=== PATIENT | male | born 1980 | race Two or more races ===

== ENCOUNTER 2016-11-12 20:24 | Emergency (ER) | payer SELFPAY ==
[~2016-11-12] VITALS: Ht 157.5 cm; Wt 83.9 kg
[2016-11-12] MEDS ORDERED: NKM (20:38)
[2016-11-12] MEDS ORDERED: PERCOCET 5-3251 EACH ORAL (22:55)
[2016-11-12] MEDS ORDERED: IBUPROFEN600 MG ORAL (22:55)
[2016-11-12 23:37] VITALS: BP_SYST 1; BP_SYST 119; BP_DIAS 1; BP_DIAS 85
--- NOTE | 2016-11-13 00:26 | Emergency Room Report ---
History of Present Illness General Chief Complaint: Upper Extremity Injury Source: Patient Present Illness HPI 36YOM with left elbow pain after 8 foot fall on left arm last night while doing work in the house. C/o progressive pain to area, swelling to arm/hand distal to elbow. Didnt take any OTC meds. Unable to raise elbow, fully extend elbow. Denies pain anywhere else. No previous elbow injury Allergies: Coded Allergies: No Known Allergies (Unverified , 11/12/16) Patient History Past Medical History: none Past Surgical History: none Social History: Denies: alcohol use, drug use, smoking Immunizations: UTD Reviewed Nursing Documentation: PMH: Agreed, PSxH: Agreed Nursing Documentation-PMH Past Medical History: No Stated History Review of Systems All Other Systems: negative except mentioned in HPI Physical Exam Vital Signs Date Time Temp Pulse Resp B/P Pulse Ox O2 Delivery O2 Flow Rate FiO2 11/12/16 20:35 98.8 92 18 119/85 98 Room Air Sp02 EP Interpretation: reviewed, normal General Appearance: normal inspection, well appearing, no apparent distress, alert Head: atraumatic ENT: normal ENT inspection, hearing grossly normal, normal voice Neck: normal inspection, full range of motion, supple, no bony tend Respiratory: normal inspection, lungs clear, normal breath sounds, no respiratory distress, no retraction, no wheezing Cardiovascular #1: regular rate, rhythm, no edema Gastrointestinal: normal inspection, normal bowel sounds, non tender, soft, no guarding, no hernia Genitourinary: no CVA tenderness Musculoskeletal: other - Left arm: ++ ttp to left elbow joint. Unable to full extend. ROM limited by pain. Non-pitting edema extending from elbow down to including hand. No pain to left jake, wrist, forearm or shoulder. 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, motor strength/tone normal, speech normal Psychiatric: normal inspection, judgement/insight normal, mood/affect normal Skin: normal inspection, normal color, no rash Procedures Splinting Splinting : Consent: Verbal Hand-Made Type: plaster Splint: posterior long Pre-Proc Neuro Vasc Exam: normal Post-Proc Neuro Vasc Exam: normal Patient Tolerated: Well Complications: None Medical Decision Making Diagnostic Impression: Primary Impression: Left elbow fracture Qualified Codes: S42.402A - Unspecified fracture of lower end of left humerus , initial encounter for closed fracture ER Course Left elbow fracture Long posterior splint placed Sling given Rx analgesia provided Understands to f/up with Orthopedics in 1-2 weeks DC home Chest X-Ray Diagnostic Results Chest X-Ray Diagnostic Results : Chest X-Ray Ordered: Yes # of Views/Limited/Complete: 1 View Indication: Chest Pain EP Interpretation: Yes Interpretation: no consolidation Impression: No acute disease Interpreting ER Provider: Electronically signed by DR Baron Other X-Ray Diagnostic Results Other X-Ray Diagnostic Results : X-Ray ordered: Left humerus # of Views/Limited Vs Complete: 3 View Indication: Pain EP Interpretation: Yes Interpretation: no dislocation, no soft tissue swelling Impression: Other - Radial head fx Interpreting ER Provider: Electronically signed by DR Baron PA Scribe Text Left wrist Reviewed by ED physician 3 views No acute fx, dislocation, soft tissue swelling Left forearm Reviewed by ED physician 2 views No acute fx, dislocation, soft tissue swelling Last Vital Signs Date Time Temp Pulse Resp B/P Pulse Ox O2 Delivery O2 Flow Rate FiO2 11/12/16 23:37 98.8 18 119/85 98 Room Air 11/12/16 20:35 92 Disposition: HOME, SELF-CARE Condition: Improved Scripts Oxycodone/Acetaminophen 5-325* (PERCOCET 5-325 MG TABLET*) 1 Each Tablet 1 TAB ORAL BID Y for Severe Breakthru Pain (>7) for 7 Days, #14 TAB Prov: JAVON BARON M.D. 11/12/16 Ibuprofen* (MOTRIN*) 600 Mg Tablet 600 MG ORAL THREE TIMES A DAY for For Pain for 7 Days, #30 TAB 0 Refills Prov: JAVON BARON M.D. 11/12/16 Patient Instructions: Elbow Fracture, Simple Additional Instructions: - Keep splint clean and dry - Follow up with Orthopedics in 1-2 weeks - Take Ibuprofen for pain, percocet only for severe pain JVAON BARON M.D. Nov 13, 2016 00:26
--- NOTE | 2016-11-13 09:18 | Diagnostic Imaging Report ---
Indication: Pain Findings: 2 views of the left humerus were obtained. No acute fractures, malalignment, erosions or periostitis are identified. Bone mineralization is within normal limits. Soft tissues are unremarkable. Note: There is a fracture of the radial head which was discussed in the elbow report. Impression: Negative examination of the humerus
--- NOTE | 2016-11-13 09:19 | Diagnostic Imaging Report ---
Indication: Pain Findings: 3 views of the left wrist were obtained. No acute fractures, malalignment, erosions or periostitis are identified. Bone mineralization is within normal limits. Soft tissue swelling is present involving the dorsal aspect of the wrist. Impression: No acute fracture appreciated
--- NOTE | 2016-11-13 09:19 | Diagnostic Imaging Report ---
Indication: Pain Findings: 3 views of the left elbow were obtained. There is an acute, comminuted fracture of the radial head and neck with intra-articular extension. Joint effusion demonstrated with elevation of the fat pads. Alignment is well maintained. Impression: Acute fracture of the radial head and neck
--- NOTE | 2016-11-13 09:20 | Diagnostic Imaging Report ---
Indication: Pain Findings: 2 views of the left forearm were obtained. Acute fracture of the radial head and neck noted. No additional fractures are seen. Alignment is normal. Impression: Radial head fracture.
--- NOTE | 2016-11-13 13:30 | Diagnostic Imaging Report ---
Indication: Chest pain. Chest trauma Comparison: None A single view chest radiograph was obtained. Findings: Cardiomediastinal appearance is within normal limits for age. Pulmonary vascularity is appropriate. The diaphragmatic contour is smooth and costophrenic angles are sharp. No pleural effusions are identified. The bones are unremarkable. Impression: No acute findings
== END 2016-11-12 23:20 | disposition home or self-care (01) ==
LOC: EMR 20:50
DX: S42.402A Unspecified fracture of lower end of left humerus, initial encounter for closed fracture (principal); X58.XXXA Exposure to other specified factors, initial encounter; Y93.9 Activity, unspecified; Y92.009 Unspecified place in unspecified non-institutional (private) residence as the place of occurrence of the external cause
CPT/HCPCS: 29105; 29240; 71010; 99284

== ENCOUNTER 2019-12-27 19:03 | Emergency (ER) | payer SELFPAY ==
[~2019-12-27] VITALS: Ht 162.6 cm; Wt 86.2 kg
[~2019-12-27 19:03] MED LIST: IBUPROFEN600 MG ORAL; NKM; PERCOCET 5-3251 EACH ORAL
[2019-12-27 19:23] VITALS: BP 141/88
--- NOTE | 2019-12-27 19:23 | NUR ---
ED Nurse Note: pt ambulated into ed from home CO CP x 4 days, described as continous ache. pt denies n/v/fever but states that he has had a recent cough. Pt denies being around others who are sick at home or at work. Pt AAO x 4, ambulates with steady gait. Pt placed in gown in bed on cardiac rn. IV line initiated, blood drawn. EKG performed by RN. Awaiting ERMD at bedside. Awaiting further orders.
[2019-12-27] MEDS ORDERED: Ketorolac 30mg Inj IM ONE (19:30)
--- NOTE | 2019-12-27 19:42 | NUR ---
ED Nurse Note: blood work obtained and sent to lab
[2019-12-27] MEDS ORDERED: ROBAXIN-750750 MG PO (19:43)
[2019-12-27] MEDS ORDERED: NAPROXEN500 M2 ORAL (19:43)
[2019-12-27 19:47] LABS: BASOPHILS % (AUTO) 1.5 % (0.0-2.0); EOSINOPHILS % (AUTO) 3.4 % (0.0-3.0); MEAN CORPUSCULAR VOLUME 85 FL (80-99); NEUTROPHILS % (AUTO) 59.1 % (45.0-75.0); PLATELET COUNT 260 K/UL (150-450); RED BLOOD COUNT 4.94 M/UL (4.70-6.10); RED CELL DISTRIBUTION WIDTH 12.7 % (11.6-14.8); WHITE BLOOD COUNT 10.1 K/UL (4.8-10.8)
--- NOTE | 2019-12-27 19:52 | NUR ---
ED Nurse Note: xray at bedside
--- NOTE | 2019-12-27 19:54 | Emergency Room Report ---
History of Present Illness General Chief Complaint: Chest Pain Source: Patient Present Illness HPI 39M no PMHx c/o R sided chest pain x 4 days, constant. 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 Also states he recently traveled to [place] within the past 1 month. Admits to dry cough and fatigue. Unaware whether he has positive COVID contacts or not. Denies SOB, hemoptysis, hx blood clot, leg swelling, n/v/d, melena or hematochezia, dizziness or other complaints. Denies change in appetite. The patient's symptoms were gradual onset, severity was moderate, duration since 4 days. Quality: aching, non radiating Past medical history: denies Past surgical history: Denies Smoking: Denies Alcohol use: Occasional Drug use: Denies Review of systems: CONST: + fatigue. No fevers or chills, No night sweats PULMONARY: + dry cough, No shortness of breath CARDIAC: +Chest pain, No palpitations GI: No vomiting, No diarrhea , No melena_or_BRBPR : No dysuria, No hematuria, No discharge NEURO: No new_focal_weakness_or_numbness, No confusion, No vision changes 14 point Review of Systems is otherwise negative except per HPI Physical Exam: GENERAL: Awake_alert_ nontoxic, no acute distress Spo2 98% on RA -normal EYES: Extraocular muscles are intact. Conjunctivae clear. Lids without swelling ENT: External nose and ear normal_in_appearance. Oropharynx clear. Head_ atraumatic, Moist_oral_mucosa NECK: No JVD. No meningismus. No thyromegaly. Supple. Trachea midline Reproducible anterior chest wall TTP RESP: Normal respiratory effort. Symmetric rise. No stridor. Clear_to_ auscultation_No_rales_No_wheezes CARDIAC: Regular rate and regular rhytm. No_significant pedal edema. ABDOMEN: Soft. Nondistended. Nontender_No_rebound_or_guarding. MSK: Normal muscle tone, without rigidity. Extremities without asymmetric deformity or swelling. SKIN: Warm and dry. No visible cyanosis or pallor NEUROLOGIC: Alert, oriented x3. Motor_and_sensation_grossly_intact. No truncal ataxia. Gait_normal Psych: Normal mood and affect, normal judgment and insight - COORDINATION OF CARE Case was discussed with: Patient Any labs and imaging that were ordered were interpreted as part of the medical decision making: Medical Decision Making/Plan: Differential includes acute coronary syndrome, pulmonary embolism, pneumonia, aortic dissection, pericardial tamponade, musculoskeletal chest pain, among others. Patient is nontoxic and well-appearing with stable vitals signs. COVID found to be positive. CXR does not show multifocal pna, effusion, or PTX. Otherwise, the patients pain appears consistent with a musculoskeletal origin. Pain is reproducible with palpation and states it is constant x 4 days, worse with lifting things. EKG shows NSR without any obvious signs of ischemia. No significant right heart strain. CXR shows no evidence of pneumothorax, pneumonia, or significant pleural effusion. Troponin negative. Dimer negative. Doubt PE. COVID is positive Acute coronary syndrome is unlikely and the patient is low risk, pain is atypical, nonexertional, and troponin is negative with over 6 hrs of symptoms. The pain is not classic for pericarditis or myocarditis, and the patient has no significant risk factors for a pericardial effusion and has stable vitals signs , unlikely to have tamponade. Pain is not likely to be pulmonary embolism (PERC negative), dimer negative. The patient has no significant risk factors for aortic dissection, no history of connective tissue disorder, and the patients pain is not severe, radiating to the back, or tearing in nature. They have normal bilateral radial and pedal pulses. Patient observed for several hours in the ED, ECG with no emergent findings, patient discharged with no dangerous vital signs, patient instructed to follow up with PMD in the next 1-2 days to be referred for a treadmill stress test within the next 48-72 hours. HEART score < 4, which indicates low risk, so the patient can be safely discharged with the understanding that they need to make an appointment with a primary care doctor to be referred for a stress test within the next 48-72 hours, or if they cannot arrange that they are to return to the ED, or sooner than that if they have any changing, persistent, or worsening symptoms. In the HEART studies, the patients in the low risk group were discharged and found to have a 0.9-1.7% chance of having a major adverse cardiac event (defined as revascularization, myocardial infarction, or all- cause mortality) within 6 weeks. DDx: includes COVID-19 / coronavirus infection, URI, bronchitis, viral syndrome , postnasal drip, versus less likely pneumonia, among others. The patient is nontoxic and well-appearing and has no significant shortness of breath or fever . The patient exhibits no evidence of respiratory distress. Chest x-ray revealed no evidence of obvious consolidation of infiltrate. There is no clinical evidence to suggest pneumonia at this time. The patient's presentation appears consistent with bronchitis / viral syndrome, without any indication for antibiotics. No evidence of ENT emergency, airway patent, tolerating oral liquids and solids. No stridor or difficulty breathing. Tonsils within normal limits, no evidence of swelling, exudate or strep pharyngitis. No indication for empiric antibiotic treatment. Sublingual space soft. The patient was instructed to follow up with their physician and instructed to return if worsens, progressively worsening shortness of breath or difficulty breathing, persistent fever, chest pains or discomfort, inability to keep medication or fluids down with or without vomiting, or any other new, worsening or concerning symptoms Based on the patients presenting signs, symptoms, exam, and risk factors ( living in an area endemic for a coronavirus outbreak = [place]), the patient has been screened for coronavirus infection has COVID 19. Patient was nontoxic with benign vital signs. Patient did not meet admission criteria and was stable for outpatient therapy. Patient was instructed to home quarantine for 14 days or until 3 days after their last fever, whichever is longer. Appropriate precautions were given. Strict return precautions given, including but limited to: Patient educated to notify a healthcare professional if they develop further symptoms that include chest pain, palpitations, significant SOB, fever, or other concerning symptoms. Discussed supportive care with rest, hydration, frequent handwashing and Tylenol and Motrin over-the- counter as needed for pain or fevers. Discussed strict return precautions. Verbal discharge with written instructions were given for COVID-19. Patient is instructed to follow up with their primary care provider in 1-2 days, or return to the ED for worsening symptoms. Return to ED precautions were given. 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 Past Medical History: No Stated History Hx Hypertension: No Hx Pacemaker: No Hx Asthma: No Hx COPD: No Hx Diabetes: No Hx Cancer: No Hx Gastrointestinal Problems: No Hx Dialysis: No History Of Psychiatric Problem: No Hx Neurological Problems: No Hx Cerebrovascular Accident: No Hx Seizures: No Physical Exam Vital Signs Date Time Temp Pulse Resp B/P (MAP) Pulse Ox O2 Delivery O2 Flow Rate FiO2 12/27/19 19:13 98.6 84 20 141/88 (105) 96 Room Air Sp02 EP Interpretation: reviewed, normal Medical Decision Making Diagnostic Impression: Primary Impression: Chest wall pain Additional Impressions: COVID-19 Cough EKG Diagnostic Results PA Zachary Aldridge 12-lead EKG (interpreted by me) Time: 1920 Indication: Rhythm analysis Tracing visualized and Interpreted by me. Rhythm: Normal sinus rhythm Rate: 84 bpm QTc: 456 Morphology: No_significant_ST_elevations_or_depressions, No STEMI Impression: Normal_sinus_rhythm_without_significant_abnormality Chest X-Ray: Views: 1 view(s) Indication: Chest wall pain Findings: Normal heart size. Mediastinum normal. No infiltrate. Impression: No acute disease The X-ray(s) were independently viewed and interpreted contemporaneously Electronically signed by Yudy antonio DO Rhythm Strip Diag. Results Rhythm Strip Time: 19:21 EP Interpretation: yes Rhythm: NSR, no PVC's, no ectopy Chest X-Ray Diagnostic Results Chest X-Ray Diagnostic Results : Chest X-Ray Ordered: Yes Last Vital Signs Date Time Temp Pulse Resp B/P (MAP) Pulse Ox O2 Delivery O2 Flow Rate FiO2 12/27/19 19:13 98.6 84 20 141/88 (105) 96 Room Air Disposition: HOME, SELF-CARE Admit Decision Time: 21:00 Condition: Stable Scripts Methocarbamol* (ROBAXIN-750*) 750 Mg Tablet 750 MG PO TID, #21 TAB 0 Refills Prov: Yudy Murray D.O. 12/27/19 Naproxen* (NAPROXEN*) 500 Mg Tablet 500 MG ORAL TWICE A DAY for 14 Days, #28 TAB Prov: Yudy Murray D.O. 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 Follow-up with your doctor sooner if your condition requires a more timely clinical reevaluation. Return to the emergency department immediately if you feel that your condition is worsening or if you have any new or concerning symptoms. Review your discharge instructions and take any prescriptions given as instructed. Your evaluation suggests that you are suffering from a viral infection producing a viral syndrome. Symptoms of a viral syndrome may include fever, sore throat, headache, body aches and pains, generalized weakness and fatigue, and runny nose. You do not show signs or symptoms suggestive of a serious or life threatening illness. This illness may be caused by a number of different viruses, including Influenza A or B or COVID-19. These viruses are highly contagious and spread rapidly from person to person via coughing and sneezing of the virus or by contaminated surface contact with nasal or other respiratory secretions. These viruses cause a similar combination of signs and symptoms which are typically much more severe than the common cold. Typically they begin with the rapid onset of fever, often high (over 102), body aches, fatigue, headache, and usually upper respiratory tract infections symptoms such as cough , runny nose, and sore throat. The illness typically lasts 7-10 days, with the fever and feelings of weakness and body aches usually lasting 3-5 days. Your own immune system fights off these infections. Only rarely do secondary bacterial infections occur (such as bacterial pneumonia) and can be serious. At this time your symptoms do not appear serious, however, there are limitations to online visits and if you are not improving you may need to be evaluated by a doctor in person and that doctor may need to do additional tests. INSTRUCTIONS: Illnesses such as yours typically resolve on their own with time however you must remember to stay hydrated and drink 2-3 times your normal fluid intake, as fever and your increased metabolism in fighting the infection uses more water. Fever control is important to help you feel better and to help prevent dehydration. Acetaminophen is an excellent choice for fever control and other symptoms (as long as you are not allergic to the medication). Rest is also important in helping your body fight this infection. Over the counter cough and decongestant medications are safe (as long as you dont have uncontrolled high blood pressure) and may help the cough and congestion slightly. As these viruses are highly contagious, good hand washing habits, and covering your cough and sneeze help prevent spread. Fever can be a sign of a serious infection and it is imperative that you go directly to an Emergency Department for serious symptoms such as weakness, confusion, significant shortness of breath, abdominal pain, or severe headache. Close follow up with a physician is important if you are not improving over the next few days or you experience worsening of your symptoms. Although it is impossible to know at this point if you have COVID-19 (the Kraft virus), please quarantine yourself and anyone else that is residing with you for the longer of the following time periods: 14 days OR 3 days after the last of your symptoms has resolved CONTACT THE DOCTOR RIGHT AWAY if you develop worsening symptoms such as shortness of breath, chest pain, neck stiffness, confusion or any other new, worsening, or concerning symptoms. For emergencies contact 911 immediately. Yudy Murray D.O. Dec 27, 2019 19:54
[2019-12-27 20:06] LABS: ANION GAP 13 mmol/L (5-15); BLOOD UREA NITROGEN 13 mg/dL (7-18); CALCIUM 9.8 MG/DL (8.5-10.1); CARBON DIOXIDE 28 MMOL/L (21-32); CHLORIDE 100 MMOL/L (98-107); POTASSIUM 3.3 MMOL/L (3.5-5.1); SODIUM 140 MMOL/L (136-145)
--- NOTE | 2019-12-27 20:14 | Diagnostic Imaging Report ---
EXAM: XR Chest, 1 View CLINICAL HISTORY: PAIN TECHNIQUE: Frontal view of the chest. COMPARISON: None. FINDINGS: Lungs: The lungs are well aerated. Pleural space: No pleural effusions. No pneumothorax. Heart: Cardiomediastinal silhouette unremarkable. Mediastinum: See above. Bones/joints: The ribs are unremarkable. IMPRESSION: No active disease.
[2019-12-27 20:17] LABS: ALANINE AMINOTRANSFERASE 66 U/L (12-78); ALBUMIN 4.4 G/DL (3.4-5.0); ALBUMIN/GLOBULIN RATIO 1.1 (1.0-2.7); ALKALINE PHOSPHATASE 86 U/L (46-116); ASPARTATE AMINO TRANSFERASE 27 U/L (15-37); BILIRUBIN,TOTAL 0.3 MG/DL (0.2-1.0)
--- NOTE | 2019-12-27 20:35 | NUR ---
ED Nurse Note: ERMD at bedside
[2019-12-27 20:40] VITALS: BP 134/74
--- NOTE | 2019-12-27 20:40 | NUR ---
ER DISCHARGE NOTE: Patient is cleared to be discharged home per ERMD, pt is aox4, 97% on room air, with stable vital signs. pt was given dc and prescription instructions, pt was able to verbalize understanding, pt id band and iv site removed without complications. pt is able to ambulate with steady gait. pt took all belongings.
== END 2019-12-27 20:40 | disposition home or self-care (01) ==
LOC: EMR 19:43
DX: U07.1 COVID-19 (principal); R05 Cough; R07.9 Chest pain, unspecified
CPT/HCPCS: 36415; 71045; 80053; 83880; 84484; 85025; 85379; 93005; 99283; J1885; U0002

== ENCOUNTER 2020-02-13 22:23 | Emergency (ER) | payer SELFPAY ==
[~2020-02-13] VITALS: Ht 170.2 cm; Wt 86.2 kg
[~2020-02-13 22:23] MED LIST changes: +NAPROXEN500 M2 ORAL; +ROBAXIN-750750 MG PO
[2020-02-13 22:50] VITALS: BP 131/84
--- NOTE | 2020-02-13 22:50 | NUR ---
ED Nurse Note: pt ambulated into ed from home CO lower left abd pain 8/10 x 2 days. Pt states that pain began 4 days ago but was tolerable. Pt states that pain began to worsen 2 days ago with noted enlargement of lower left abd and appearance of new bumps in the umbilicus. Pt aao x 4, ambulates with steady gait. pt denies n/v fever, chills, body aches, blood in stool. Pt reports some difficulty urinating x 1 day but denies difficulty during BM. Pt placed in gown in bed. Awaiting ERMD at bedside. Awaiting further orders.
--- NOTE | 2020-02-13 22:55 | NUR ---
ED Nurse Note: ERMD at bedside. IV line initiated, blood and ua sent to lab.
[2020-02-13] MEDS ORDERED: Omnipaque-300 100ml vial INJ PRN (23:00)
--- NOTE | 2020-02-13 23:00 | NUR ---
ED Nurse Note: all medications administered, pt tolerated well no ss of distress noted. will continue to monitor.
--- NOTE | 2020-02-13 23:05 | Emergency Room Report ---
History of Present Illness General Chief Complaint: Abdominal Pain Present Illness HPI 39-year-old otherwise healthy male with no past medical history here with 4 days of right lower quadrant abdominal tenderness and distention. Patient says that 4 days ago he began to notice a little bit of pain on the right lower quadrant of his abdomen and said that that small region appears to be bulging. He is never had this before. Has had some mild loose stool but denies any vomiting,, other abdominal pain, constipation. Passing gas normally. No surgical history. Takes no medications. Allergies: Coded Allergies: No Known Allergies (Unverified , 11/12/16) COVID-19 Screening Contact w/high risk pt: No Experienced COVID-19 symptoms?: No COVID-19 Testing performed [employer]: No Nursing Documentation-PMH Hx Hypertension: No Hx Pacemaker: No Hx Asthma: No Hx COPD: No Hx Diabetes: No Hx Cancer: No Hx Gastrointestinal Problems: No Hx Dialysis: No Hx Neurological Problems: No Hx Cerebrovascular Accident: No Hx Seizures: No Physical Exam Vital Signs Date Time Temp Pulse Resp B/P (MAP) Pulse Ox O2 Delivery O2 Flow Rate FiO2 02/13/20 22:40 98.8 77 16 131/84 (100) 97 Room Air Sp02 EP Interpretation: reviewed, normal General Appearance: no apparent distress, alert, GCS 15, non-toxic Head: normocephalic, atraumatic Eyes: bilateral eye normal inspection, bilateral eye PERRL ENT: hearing grossly normal, normal pharynx, no angioedema, normal voice Neck: full range of motion, supple/symm/no masses Respiratory: chest non-tender, lungs clear, normal breath sounds, speaking full sentences Cardiovascular #1: regular rate, rhythm, no edema Cardiovascular #2: 2+ carotid (R), 2+ carotid (L), 2+ radial (R), 2+ radial (L), 2+ dorsalis pedis (R), 2+ dorsalis pedis (L) Gastrointestinal: normal bowel sounds, soft, non-distended, no guarding, no rebound, other - Reducible region of abdominal distention in the right lower quadrant. No rebound or guarding. No abdominal distention otherwise Rectal: deferred Genitourinary: normal inspection, no CVA tenderness Musculoskeletal: back normal, normal range of motion, calf tenderness, gait/station normal, non-tender Neurologic: alert, motor strength/tone normal, oriented x3, sensory intact, responsive, speech normal Psychiatric: judgement/insight normal, memory normal, mood/affect normal, no suicidal/homicidal ideation Lymphatic: no adenopathy Medical Decision Making Diagnostic Impression: Primary Impression: Colitis Additional Impressions: Diarrhea Abdominal pain ER Course Laboratory Tests Test 02/13/20 23:00 White Blood Count 6.3 K/UL (4.8-10.8) Red Blood Count 4.84 M/UL (4.70-6.10) Hemoglobin 14.1 G/DL (14.2-18.0) L Hematocrit 38.9 % (42.0-52.0) L Mean Corpuscular Volume 80 FL (80-99) Mean Corpuscular Hemoglobin 29.1 PG (27.0-31.0) Mean Corpuscular Hemoglobin Concent 36.3 G/DL (32.0-36.0) H Red Cell Distribution Width 11.8 % (11.6-14.8) Platelet Count 229 K/UL (150-450) Mean Platelet Volume 7.9 FL (6.5-10.1) Neutrophils (%) (Auto) 45.3 % (45.0-75.0) Lymphocytes (%) (Auto) 40.8 % (20.0-45.0) Monocytes (%) (Auto) 8.0 % (1.0-10.0) Eosinophils (%) (Auto) 3.8 % (0.0-3.0) H Basophils (%) (Auto) 2.1 % (0.0-2.0) H Urine Color Yellow Urine Appearance Clear Urine pH 6.5 (4.5-8.0) Urine Specific [place] 1.020 (1.005-1.035) Urine Protein Negative (NEGATIVE) Urine Glucose (UA) Negative (NEGATIVE) Urine Ketones Negative (NEGATIVE) Urine Blood Negative (NEGATIVE) Urine Nitrite Negative (NEGATIVE) Urine Bilirubin Negative (NEGATIVE) Urine Urobilinogen 1 MG/DL (0.0-1.0) H Urine Leukocyte Esterase Negative (NEGATIVE) Sodium Level 139 MMOL/L (136-145) Potassium Level 3.4 MMOL/L (3.5-5.1) L Chloride Level 104 MMOL/L (98-107) Carbon Dioxide Level 27 MMOL/L (21-32) Blood Urea Nitrogen 12 mg/dL (7-18) Creatinine 1.1 MG/DL (0.55-1.30) Estimated Glomerular Filtration Rate > 60 mL/min (>60) Glucose Level 110 MG/DL (74-106) H Calcium Level 9.0 MG/DL (8.5-10.1) Total Bilirubin 0.3 MG/DL (0.2-1.0) Aspartate Amino Transferase (AST) 24 U/L (15-37) Alanine Aminotransferase (ALT) 48 U/L (12-78) Alkaline Phosphatase 69 U/L (46-116) Total Protein 6.7 G/DL (6.4-8.2) Albumin 4.0 G/DL (3.4-5.0) Globulin 2.7 g/dL Albumin/Globulin Ratio 1.5 (1.0-2.7) Lipase 170 U/L (73-393) CT abdomen pelvis with IV contrast: Mild or early inflammatory infectious colitis involving the distal half of the transverse colon, descending colon, sigmoid colon. No obstruction. Gallbladder contracted but unremarkable. Fatty infiltration of the liver. Normal appendix 31-year-old male here with mild abdominal distention and abdominal pain for several days with diarrhea. Patient had a largely unremarkable physical examination with only mild lower abdominal tenderness without any rebound or guarding or distention. CT abdomen pelvis showed mild colitis. He did not have any hernia or evidence of obstruction. CBC and CMP were largely unremarkable. Patient was given IV fluids and pain medication in the emergency department with good resolution of his symptoms. Given prescription for ciprofloxacin for treatment of colitis as well as acetaminophen for pain. We will follow-up with primary care. Told to come back to the emergency department with any worsening abdominal pain, fevers, bloody vomit or stool. He expressed understanding and was discharged. Last Vital Signs Date Time Temp Pulse Resp B/P (MAP) Pulse Ox O2 Delivery O2 Flow Rate FiO2 02/13/20 22:40 98.8 77 16 131/84 (100) 97 Room Air Scripts Acetaminophen* (TYLENOL EXTRA STRENGTH*) 500 Mg Tablet 500 MG ORAL Q8H PRN for Prn Headache/Temp > 101, #30 TAB 0 Refills Prov: Shaquille Cao M.D. 02/14/20 Ciprofloxacin Hcl* (CIPROFLOXACIN HCL*) 500 Mg Tablet 500 MG ORAL Q12H for 5 Days, #10 TAB 0 Refills Prov: Shaquille Coa M.D. 02/14/20 Shaquille Cao M.D. Feb 13, 2020 23:05
[2020-02-13] MEDS ORDERED: Ketorolac 30mg Inj IV ONE (23:15)
--- NOTE | 2020-02-13 23:15 | NUR ---
ED Nurse Note: all medications administered, pt tolerated well no ss of distress noted. will continue to monitor.
--- NOTE | 2020-02-13 23:20 | NUR ---
ED Nurse Note: pt taken to CT in stable condition
[2020-02-13 23:28] LABS: BASOPHILS % (AUTO) 2.1 % (0.0-2.0); EOSINOPHILS % (AUTO) 3.8 % (0.0-3.0); HEMATOCRIT 38.9 % (42.0-52.0); HEMOGLOBIN 14.1 G/DL (14.2-18.0); LYMPHOCYTES % (AUTO) 40.8 % (20.0-45.0); MEAN CORPUSCULAR VOLUME 80 FL (80-99); NEUTROPHILS % (AUTO) 45.3 % (45.0-75.0); PLATELET COUNT 229 K/UL (150-450); RED BLOOD COUNT 4.84 M/UL (4.70-6.10); RED CELL DISTRIBUTION WIDTH 11.8 % (11.6-14.8); WHITE BLOOD COUNT 6.3 K/UL (4.8-10.8)
[2020-02-13 23:29] LABS: APPEARANCE,URINE CLEAR; BILIRUBIN, URINE NEGATIVE (NEGATIVE); GLUCOSE, URINE (UA) NEGATIVE (NEGATIVE); KETONES,URINE NEGATIVE (NEGATIVE); LEUKOCYTE ESTERASE ,URINE NEGATIVE (NEGATIVE); NITRITE,URINE NEGATIVE (NEGATIVE); PH,URINE 6.5 (4.5-8.0); PROTEIN,URINE NEGATIVE (NEGATIVE); UROBILINOGEN,URINE 1 MG/DL (0.0-1.0)
[2020-02-13 23:31] LABS: COLOR,URINE YELLOW
[2020-02-13 23:39] LABS: ALANINE AMINOTRANSFERASE 48 U/L (12-78); ALBUMIN/GLOBULIN RATIO 1.5 (1.0-2.7); ALKALINE PHOSPHATASE 69 U/L (46-116); ASPARTATE AMINO TRANSFERASE 24 U/L (15-37); BILIRUBIN,TOTAL 0.3 MG/DL (0.2-1.0); BLOOD UREA NITROGEN 12 mg/dL (7-18); CHLORIDE 104 MMOL/L (98-107); CREATININE 1.1 MG/DL (0.55-1.30); POTASSIUM 3.4 MMOL/L (3.5-5.1); SODIUM 139 MMOL/L (136-145)
--- NOTE | 2020-02-13 23:45 | NUR ---
ED Nurse Note: Pt returned from CT in stable condition
[2020-02-13 23:47] LABS: CARBON DIOXIDE 27 MMOL/L (21-32)
[2020-02-14 00:20] VITALS: BP 135/76
--- NOTE | 2020-02-14 01:00 | NUR ---
ED Nurse Note: PT resting in bed, VSS no ss of distress noted. will continue to monitor.
--- NOTE | 2020-02-14 01:15 | NUR ---
ED Nurse Note: ERMD at bedside for pt update
[2020-02-14] MEDS ORDERED: CIPROFLOXACIN500 M2 ORAL (01:34)
[2020-02-14] MEDS ORDERED: TYLENOL EXTRA500 MG ORAL (01:36)
[2020-02-14 01:49] VITALS: BP 134/82
--- NOTE | 2020-02-14 01:49 | NUR ---
ER DISCHARGE NOTE: Patient is cleared to be discharged home per ERMD, pt is aox4, 99% on room air, with stable vital signs. pt was given dc and prescription instructions, pt was able to verbalize understanding, pt id band and iv site removed without complications. pt is able to ambulate with steady gait. pt took all belongings.
--- NOTE | 2020-02-15 06:19 | Diagnostic Imaging Report ---
EXAM: CT Abdomen and Pelvis With Intravenous Contrast CLINICAL HISTORY: PAIN TECHNIQUE: Axial computed tomography images of the abdomen and pelvis with intravenous contrast. CTDI is 9.1 mGy and DLP is 504.6 mGy-cm. One or more of the following dose reduction techniques were used: automated exposure control, adjustment of the mA and/or kV according to patient size, use of iterative reconstruction technique. COMPARISON: No previous study. FINDINGS: Lung bases: Minimal subsegmental atelectasis posteriorly at the lung bases, right greater than left. Pleural space: No pleural effusions. ABDOMEN: Liver: Diffuse fatty infiltration of the liver is noted with fatty sparing about the round ligament. The liver and the spleen enhance uniformly. Gallbladder and bile ducts: See below. Pancreas: See below. Spleen: See above. Adrenals: The adrenal glands, the head, body, tail of the pancreas, and the gallbladder are unremarkable. Kidneys and ureters: Both kidneys are shown to excrete contrast bilaterally. Minimal nonspecific stranding about the perinephric spaces. Stomach and bowel: Presumed ingested material in the stomach. Moderate quantity of stool throughout the colon. Probable minimal diffuse wall thickening of the transverse colon mid to distal segment extending to the descending colon and the sigmoid colon compatible with mild inflammatory or infectious etiologies. Mild diverticulosis. No obstruction. PELVIS: Appendix: Coronal image 29 demonstrates the appendix which is unremarkable. Bladder: The bladder is underdistended. Reproductive: The prostate gland is unremarkable. ABDOMEN and PELVIS: Intraperitoneal space: Unremarkable. No free air. No significant fluid collection. Bones/joints: Mild degenerative disc disease of the thoracolumbar spine. Mild to moderate osteoarthritic changes about the sacroiliac joints. Alignment of the thoracic or lumbar spine is unremarkable. The sacrum and coccyx are unremarkable. No acute fracture. Soft tissues: Ischiorectal fat is clean. Vasculature: Flow is demonstrated within the celiac, SMA, the renal arteries, and RJ. No abdominal aortic aneurysm. Lymph nodes: No retroperitoneal lymphadenopathy. No pelvic or inguinal lymphadenopathy. Other findings: Elevation of the right hemidiaphragm. IMPRESSION: 1. Diffuse fatty infiltration of the liver. 2. Gallbladder is in a contracted state but is unremarkable per 3. No renal calculus or hydronephrosis. 4. The appendix is unremarkable. 5. Suspected mild or early inflammatory or infectious colitis involving the distal half of the transverse colon, the descending colon and the sigmoid colon. 6. No obstruction. 7. Diverticulosis.
== END 2020-02-14 01:49 | disposition home or self-care (01) ==
LOC: EMR 22:56
DX: K52.9 Noninfective gastroenteritis and colitis, unspecified (principal); R19.7 Diarrhea, unspecified; R10.31 Right lower quadrant pain; K76.0 Fatty (change of) liver, not elsewhere classified; K57.90 Diverticulosis of intestine, part unspecified, without perforation or abscess without bleeding; M51.35 Other intervertebral disc degeneration, thoracolumbar region
CPT/HCPCS: 36415; 74177; 80053; 81003; 83690; 85025; 96361; 96374; 99284; J1885; J7030; Q9965